=== PATIENT | male | born 1965 | race Caucasian/White ===

== ENCOUNTER 2019-05-05 13:24 | Outpatient (CLI) | payer OTHER ==
[~2019-05-05] VITALS: Ht 182.9 cm; Wt 80.3 kg
[2019-05-05 15:47] VITALS: BP 109/49
[2019-05-05] MEDS ORDERED: NO MEDICATION (15:47)
--- NOTE | 2019-05-05 18:45 | Consultation ---
DATE OF CONSULTATION: 05/05/2019 CHIEF COMPLAINT: Referral for screening colonoscopy and chronic GERD. HISTORY OF PRESENT ILLNESS: This is a 53-year-old male with history of kidney cancer status post surgery this year, referred by oncologist for endoscopy and colonoscopy. The patient also complained of chronic GERD. Never had a colonoscopy before. PAST MEDICAL HISTORY: Kidney cancer. PAST SURGICAL HISTORY: Nephrectomy. MEDICATION: No medication. ALLERGIES: No known allergies. FAMILY HISTORY: Grandfather had prostate cancer. SOCIAL HISTORY: The patient denies any tobacco, alcohol, or drug abuse. REVIEW OF SYSTEMS: A 10-point review of systems was performed and pertinent positives in HPI. PHYSICAL EXAMINATION: VITAL SIGNS: Temperature is afebrile, blood pressure is 109/49, pulse rate 64, and respirations 20. HEENT: Normocephalic and atraumatic. Sclerae anicteric. NECK: Supple. No evidence of obvious lymphadenopathy. CARDIOVASCULAR: Regular rate and rhythm. Plus S1 and S2. No obvious murmur. LUNGS: Clear to auscultation bilaterally. ABDOMEN: Positive bowel sounds. Soft and nontender. No rebound. No guarding. No peritoneal sign. EXTREMITIES: No cyanosis. No clubbing. No edema. ASSESSMENT AND PLAN: This is a 53-year-old male needing screening colonoscopy. Also, he has chronic GERD and needs endoscopy. Plan for doing colonoscopy examination . Meanwhile, the patient was given the prep and for colonoscopy and we are waiting for the authorization. Tony Wills M.D. DR: DEEDEE JOB#: [id number] CC:
== END 2019-05-05 15:24 | disposition home or self-care (01) ==
LOC: PAN 13:24 → EDSEX 13:24 → PAN 15:24
DX: K21.9 Gastro-esophageal reflux disease without esophagitis (principal); Z85.528 Personal history of other malignant neoplasm of kidney; Z90.5 Acquired absence of kidney
CPT/HCPCS: 99202

== ENCOUNTER 2019-06-28 13:25 | Outpatient (CLI) | payer MEDICAID ==
[~2019-06-28 13:25] MED LIST: NO MEDICATION
--- NOTE | 2019-06-28 13:48 | General Progress Note ---
Assessment/Plan Assessment/Plan: 8 colon polyps HP + gastritis repeat colon in 3 years treat for HP RTC 3 months Subjective ROS Limited/Unobtainable: Yes Allergies: Coded Allergies: No Known Allergies (Unverified , 05/05/19) Objective General Appearance: alert EENT: normal ENT inspection Neck: supple Cardiovascular: normal peripheral pulses Respiratory/Chest: decreased breath sounds Abdomen: normal bowel sounds, non tender, soft Extremities: non-tender Tony Wills MD Jun 28, 2019 13:48
[2019-06-28 14:16] VITALS: BP 111/62
== END 2019-06-28 15:51 | disposition home or self-care (01) ==
LOC: PAN 13:25
DX: K63.5 Polyp of colon (principal); K29.70 Gastritis, unspecified, without bleeding; B96.81 Helicobacter pylori [H. pylori] as the cause of diseases classified elsewhere